=== PATIENT | female | born 1945 | race Caucasian/White ===

== ENCOUNTER 2018-04-01 10:30 | Inpatient (IN) | payer OTHER ==
[~2018-04-01] VITALS: Ht 167.6 cm; Wt 67.1 kg
[2018-04-01] MEDS ORDERED: ZOCOR20 MG PO (13:07)
[2018-04-01] MEDS ORDERED: PRINIVIL5 MG PO (13:08)
[2018-04-01] MEDS ORDERED: MAXIMUM D310000 UNIT PO (13:09)
[2018-04-12] MEDS ORDERED: OXYC1TAB9 PO (07:17)
[2018-04-12] MEDS ORDERED: Intestinex CAP PO (07:17)
[2018-04-12] MEDS ORDERED: PROTONIX40 MG PO (07:18)
== END 2018-04-12 13:34 | disposition home or self-care (01) | DRG 331 ==
LOC: SURG 04-08 08:35 → O/R 04-08 08:35 → SURH 04-08 10:30 → SURG 04-09 13:20
PROC: 0DTF4ZZ Resection of Right Large Intestine, Percutaneous Endoscopic Approach (ICD-10-PCS; principal; 2018-04-10)
PROC: 07TC4ZZ Resection of Pelvis Lymphatic, Percutaneous Endoscopic Approach (ICD-10-PCS; 2018-04-10)
PROC: 0DBU4ZZ Excision of Omentum, Percutaneous Endoscopic Approach (ICD-10-PCS; 2018-04-10)
DX: D12.0 Benign neoplasm of cecum (principal)

== ENCOUNTER 2019-06-12 07:57 | Day surgery (SDC) | payer OTHER ==
[~2019-06-12 07:57] MED LIST: Intestinex CAP PO; MAXIMUM D310000 UNIT PO; OXYC1TAB9 PO; PRINIVIL5 MG PO; PROTONIX40 MG PO; ZOCOR20 MG PO
== END 2019-06-12 13:55 | disposition home or self-care (01) ==
LOC: AMB-ENDOS 07:57
DX: K63.5 Polyp of colon (principal); K64.1 Second degree hemorrhoids